=== PATIENT | male | born 1955 | race Caucasian/White ===

== ENCOUNTER 2016-07-06 13:55 | Emergency (ER) | payer OTHER ==
--- NOTE | 2016-07-06 13:59 | EDM.PDOC ---
ED HPI Trauma - General Chief Complaint: Upper Extremity Injury/Pain Stated Complaint: crush injury to right hand Time Seen by Provider: 07/06/16 13:59 Source: Reports: Patient, Family, RN, RN notes reviewed History Limitations: Reports: No limitations - History of Present Illness INITIAL COMMENTS - FREE TEXT/NARRATIVE: Patient presents to the ED at [place] after he sustained a crush injury to the 4th digit right hand. Patient states he was working on a car frame. When he went to move the car from off the jacks, the frame slipped, crushing the 4th digit of the right hand and pinning it to the ground. No previous injury or trauma to the right hand. No previous right hand surgeries. Patient denies any numbness, tingling, or paresthesia to the right hand. Symptom Onset Date: 07/06/16 Symptom Onset Time: 13:15 Occurred When: just prior to arrival Occurred Where: home Method of Injury: direct blow (crush injury) Severity: moderate Pain/Injury Location: Reports: upper extremity, right Consciousness: Reports: no loss of consciousness Associated Symptoms: Reports: no other symptoms Allergies/ADRs: Allergies No Known Allergies Allergy (Verified 07/06/16 13:56) Home Medications: Ambulatory Orders Aspirin 07/06/16 Insulin Detemir [Levemir Flextouch] 07/06/16 Lisinopril [Zestril] 07/06/16 Pravastatin Sodium [Pravastatin Sodium] 07/06/16 sitaGLIPtin Phos/Metformin HCl [Janumet 50-1,000 MG] 07/06/16 Review of Systems - Review of Systems Review Of Systems: See Below Constitutional: Reports: no symptoms. Denies: fever, weakness Respiratory: Reports: no symptoms. Denies: shortness of breath, cough Cardiovascular: Reports: no symptoms. Denies: chest pain, palpitations Musculoskeletal: Reports: hand pain (right hand) Skin: Reports: wound (4th digit laceration) Neurological: Denies: numbness, paresthesia, tingling Trauma Exam - Physical Exam Exam: See Below Exam Limited By: No limitations General Appearance: Reports: alert, no apparent distress Head: Reports: atraumatic, normocephalic Respiratory Exam: Reports: no respiratory distress, lungs clear, normal breath sounds Cardiovascular: Reports: regular rate, rhythm Extremities: Reports: pain with movement, tenderness, other (obvious deformity to 4th digit right hand; patient is unable to extend or flex 4th digit; pulses intact) Neurologic: Reports: alert, oriented x 3 Skin: Reports: Normal color - Chelsey Coma Score Best Eye Response (Chelsey): (4) open spontaneously Best Verbal Response ([place]): (5) oriented Best Motor Response (Chelsey): (6) obeys commands Chelsey Total: 15 ED TRAUMA EXTREMITY PROCEDURES - Laceration/Wound Repair Right Finger Lac/wound length in cm: 1.5 Appearance: superficial, linear, mildly contaminated Distal NVT: neuro & vascular intact, no tendon injury Skin prep: chlorhexidine (hibiciens) Exploration/Debridement/Repair: wound explored, in a bloodless field, explored to base, no foreign material found, wound margins revised Closed with: dermabond (1.5cm laceration dorsum of 5th digit closed with Dermabond. Second laceration 2.2 cm dorsum of 4th digit closed with Dermabond.) Sterile dressing applied: provider Tetanus status addressed: Yes Complications: No Course - Vital Signs Last Recorded V/S: Last Vital Signs Temp 36.2 C 07/06/16 14:01 Pulse 93 07/06/16 14:01 Resp 20 07/06/16 14:01 BP 146/88 H 07/06/16 14:01 Pulse Ox 97 07/06/16 14:01 - Orders/Labs/Meds Orders: Active Orders 24 hr Category Date Time Status Hand wo Cont Rt [CT] Stat Exams 07/06/16 13:59 Ordered Departure - Departure Time of Disposition: 15:58 Disposition: DC/Tfer to Acute Hospital 02 Condition: good Clinical Impression: Finger fracture, right Referrals: Liliana Neal DO [Primary Care Provider] - Forms: Interfacility Transfer [facility] ED Communication - ED Communication Date/Time Date: 07/06/16 Time Called: 15:40 - Discussed Case With (1) Discussed Case With (1): Other (Dr. Rajiv Mtz, Hand Surgeon) - Problem List Review Problem List Initiated/Reviewed/Updated: Yes - My Orders Last 24 Hours: My Active Orders 07/06/16 13:59 Hand wo Cont Rt [CT] Stat - Assessment/Plan Last 24 Hours: My Active Orders 07/06/16 13:59 Hand wo Cont Rt [CT] Stat Plan: Patient will transfer to [facility] for surgery. Dr. Rajiv Mtz is the accepting provider. Patient will go by private vehicle.
[2016-07-06 14:04] VITALS: BP 146/88
== END 2016-07-06 16:30 | disposition short-term general hospital (02) ==
LOC: VM.ED 13:55
DX: S62.604A Fracture of unspecified phalanx of right ring finger, initial encounter for closed fracture (principal); S61.214A Laceration without foreign body of right ring finger without damage to nail, initial encounter; W23.1XXA Caught, crushed, jammed, or pinched between stationary objects, initial encounter; Z79.82 Long term (current) use of aspirin; Z79.4 Long term (current) use of insulin; Z79.899 Other long term (current) drug therapy
CPT/HCPCS: 12002; 73200-RT; 99284

== ENCOUNTER 2017-02-18 09:12 | Inpatient (IN) | payer OTHER ==
[2017-02-18] MEDS ORDERED: Sodium Chloride 0.9% 10 ML Syringe FLUSH PRN (10:22)
[2017-02-18] MEDS ORDERED: Potassium Chloride 20 MEQ Tab.ER PO ONE (11:00)
[2017-02-18] MEDS: Ketorolac 15 MG/ML SDV IVPUSH PRN ×2 (11:19→20:11)
[2017-02-18] MEDS: Sodium Chloride 0.9% 1,000 ML IV SCH ×2 (11:19→20:12)
[2017-02-18] MEDS: Ondansetron 4 MG/2 ML SDV IVPUSH PRN ×2 (11:20→20:12)
[2017-02-18] MEDS ORDERED: Insulin Aspart 100 Units/ML 3 ML Pen SUBCUT SCH (12:00)
[2017-02-18] MEDS: Acetaminophen 500 MG Tab PO PRN ×2 (16:41→20:30)
--- NOTE | 2017-02-18 16:42 | PCM.HP ---
H&P History of Present Illness - General Date of Service: 02/18/17 Admit Problem/Dx: Admission Diagnosis/Problem Admission Diagnosis/Problem Fever Source of Information: Patient History Limitations: Reports: No Limitations - History of Present Illness Initial Comments - Free Text/Narative: 61 yo seen yesterday in the clinic for fever and headaches starting around 02/06 was seen on 02/11 had a negative west nile test, had been started on doxy yesterday due to a trip to [place] but still spiked a 102 fever during the night. Lyme testing did come back negative. His knees do ache and he is very fatigued. His son had a similar illness that eventually went away. His CBC was normal yesterday. Took ambien to help sleep but he almost fell so his was helping him. Toradol given in the office did help his headache but it is back again. Headache is posterior with no neck pain. he had been using tylenol and lfts were about 2 x normal. Sodium was 128 yesterday and today 130. He has been able to drink gatorade but has no appetite to eat much. Does have diabetes and blood sugars have been high. Onset of Symptoms: Reports: Gradual Duration of Symptoms: Reports: Week(s): Location: Reports: Head Severity: Moderate Improves with: Reports: Medication Associated Symptoms: Reports: Fever/Chills, Malaise Frontal Headache Pain Score (Numeric/FACES): 4 Occipital Headache Pain Score (Numeric/FACES): 4 - Related Data Allergies/Adverse Reactions: Allergies Allergy/AdvReac Type Severity Reaction Status Date / Time No Known Allergies Allergy Verified 02/18/17 09:28 Home Medications: Home Meds Aspirin 81 mg PO DAILY 07/06/16 [History] Insulin Detemir [Levemir Flextouch] 55 unit SQ BEDTIME 07/06/16 [History] Lisinopril [Zestril] 2.5 mg PO DAILY 07/06/16 [History] Pravastatin Sodium [Pravastatin Sodium] 20 mg PO DAILY 07/06/16 [History] sitaGLIPtin Phos/Metformin HCl [Janumet 50-1,000 MG] 1 tab PO BID 07/06/16 [ History] Doxycycline [Vibramycin] 100 mg PO BID 02/18/17 [History] Ibuprofen [Advil] 200 - 600 mg PO Q4H PRN 02/18/17 [History] Zolpidem Tartrate [Ambien] 5 mg PO BEDTIME PRN 02/18/17 [History] glipiZIDE [Glipizide ER] 10 mg PO DAILY 02/18/17 [History] Past Medical History Cardiovascular History: Reports: High Cholesterol, Other (See Below) Other Cardiovascular History: chest pain Respiratory History: Reports: Pneumonia, Recurrent Genitourinary History: Reports: Other (See Below) Other Genitourinary History: colon polyps Musculoskeletal History: Reports: Neck Pain, Chronic, Osteoarthritis, Other ( See Below) Other Musculoskeletal History: foraminal stenosis of cervical region Neurological History: Reports: Other (See Below) Other Neuro History: mortons neuroma Endocrine/Metabolic History: Reports: Diabetes, Type II, Other (See Below) Other Endocrine/Metabolic History: hypertriglyceridemia Social & Family History - Family History Family Medical History: Noncontributory - Tobacco Use Smoking Status *Q: Never Smoker Second Hand Smoke Exposure: No - Caffeine Use Caffeine Use: Reports: None - Alcohol Use Days Per Week of Alcohol Use: 1 Number of Drinks Per Day: 0 Total Drinks Per Week: 0 - Recreational Drug Use Recreational Drug Use: No H&P Review of Systems - Review of Systems: Review Of Systems: See Below General: Reports: Fever, Malaise, Fatigue, Decreased Appetite HEENT: Reports: Headaches, Sinus Congestion. Denies: Eye Pain, Sore Throat Pulmonary: Denies: Shortness of Breath, Wheezing, Cough, Sputum Gastrointestinal: Reports: Anorexia, Decreased Appetite. Denies: Abdominal Pain , Constipation, Diarrhea, Nausea, Vomiting Genitourinary: Denies: Dysuria Musculoskeletal: Denies: Neck Pain Skin: Reports: No Symptoms. Denies: Erythema, Wound Psychiatric: Denies: Confusion Neurological: Reports: Headache. Denies: Confusion, Dizziness Hematologic/Lymphatic: Denies: Anemia, Swollen Glands Immunologic: Denies: No Symptoms Exam - Exam Exam: See Below - Vital Signs Vital Signs: Last Vital Signs Temp 101.8 F H 02/18/17 16:23 Pulse 90 02/18/17 13:15 Resp 16 02/18/17 13:15 BP 86/41 L 02/18/17 13:15 Pulse Ox 98 02/18/17 13:15 Weight: 95.254 kg - Exam General: Alert, Oriented, Cooperative HEENT: Conjunctiva Clear, EACs Clear, EOMI, Hearing Intact Neck: Supple, Trachea Midline, Full Range of Motion. No: Lymphadenopathy, Thyromegaly Lungs: Clear to Auscultation, Normal Respiratory Effort. No: Crackles, Rales, Rhonchi Cardiovascular: Regular Rate, Regular Rhythm, Normal S1 GI/Abdominal Exam: Normal Bowel Sounds, Non-Tender, No Organomegaly, No Distention, No Mass. No: Soft Back Exam: Normal Inspection, Full Range of Motion. No: CVA Tenderness (L), CVA Tenderness (R) Extremities: Normal Inspection, Normal Range of Motion, Non-Tender, No Pedal Edema Peripheral Pulses: 2+: Dorsalis Pedis (L), Dorsalis Pedis (R) Skin: Warm, Dry Neurological: Cranial Nerves Intact Neuro Extensive - Mental Status: Oriented x3, Normal Mood/Affect, Normal Cognition Neuro Extensive - Motor, Sensory, Reflexes: Normal Gait - Patient Data Lab Results Last 24 hrs: Laboratory Results - last 24 hr 02/18/17 02/18/17 02/18/17 Range/Units 08:55 11:03 16:25 POC Glucose 195 H 137 H (74-106) mg/dL Lactic Acid 1.9 (0.4-2.0) mmol/L *Q Meaningful Use (ADM) - VTE *Q VTE Criteria *Q: - VTE Risk Assess *Q Each Risk Factor Represents 2 Points: Age 60 - 74 Years Total Score 2 Point Risk Factors: 2 - Stroke *Q Stroke Criteria *Q: - AMI *Q AMI Criteria *Q: - Problem List (1) Diabetes type 2, controlled SNOMED Code(s): 61630634 ICD Code: E11.9 - TYPE 2 DIABETES MELLITUS WITHOUT COMPLICATIONS Status: Acute Priority: Medium Current Visit: Yes Qualifiers: Diabetes mellitus complication detail: with polyneuropathy Diabetes mellitus custodial insulin use: with custodial use (2) Fever SNOMED Code(s): 401513026 ICD Code: R50.9 - FEVER, UNSPECIFIED Status: Acute Current Visit: Yes Qualifiers: Fever type: unspecified Qualified Code(s): R50.9 - Fever, unspecified (3) Headache SNOMED Code(s): 61344535 ICD Code: R51 - HEADACHE Status: Acute Priority: Medium Current Visit: Yes Qualifiers: Headache type: other headache syndrome Qualified Code(s): G44.89 - Other headache syndrome (4) Hyperlipidemia SNOMED Code(s): 51717660 ICD Code: E78.5 - HYPERLIPIDEMIA, UNSPECIFIED Status: Acute Current Visit : Yes Qualifiers: Hyperlipidemia type: pure hypercholesterolemia Qualified Code(s): E78.00 - Pure hypercholesterolemia, unspecified; E78.0 - Pure hypercholesterolemia (5) Hepatitis SNOMED Code(s): 775030906 ICD Code: K75.9 - INFLAMMATORY LIVER DISEASE, UNSPECIFIED Status: Acute Priority: Medium Current Visit: Yes (6) Hyponatremia SNOMED Code(s): 00169548 ICD Code: E87.1 - HYPO-OSMOLALITY AND HYPONATREMIA Status: Acute Priority : Medium Current Visit: Yes (7) Dehydration SNOMED Code(s): 59142484 ICD Code: E86.0 - DEHYDRATION Status: Acute Priority: Medium Current Visit: Yes Problem List Initiated/Reviewed/Updated: Yes Orders Last 24hrs: Active Orders 24 hr Category Date Time Status Patient Status [ADT] Routine ADT 02/18/17 09:13 Active Blood Glucose Check, Bedside [RC] QIDACANDBED Care 02/18/17 10:22 Active Oxygen Therapy [RC] .PRN Care 02/18/17 10:22 Active Up ad Nakia [RC] 08,20 Care 02/18/17 10:22 Active Vital Signs [RC] 06,10,14,18,22,02 Care 02/18/17 10:22 Active [place] [employer] Diet [DIET] Diet 02/18/17 Lunch Active Chest 2V [CR] Routine Exams 02/18/17 10:22 Taken CBC WITH AUTO DIFF [HEME] AM Lab 02/19/17 05:15 Ordered COMPREHENSIVE METABOLIC PN,CMP [CHEM] AM Lab 02/19/17 05:15 Ordered CREATINE KINASE,CK [CHEM] Routine Lab 02/19/17 07:00 Ordered MG [MAGNESIUM] [CHEM] Routine Lab 02/19/17 07:00 Ordered Acetaminophen [Tylenol Extra Strength] Med 02/18/17 16:31 Ordered 500 mg PO Q4H PRN Aspirin [Halfprin] Med 02/19/17 08:00 Active 81 mg PO DAILY Insulin Aspart [NovoLOG] Med 02/18/17 16:37 Ordered 3 unit SUBCUT TIDMEALS Insulin Aspart [NovoLOG] Med 02/18/17 12:00 Stop Req 5 unit SUBCUT TIDMEALS Insulin Detemir [Levemir] Med 02/18/17 20:00 Active 55 unit SUBCUT BEDTIME Ketorolac [Toradol] Med 02/18/17 10:31 Active 15 mg IVPUSH Q8H PRN Lisinopril [Prinivil] Med 02/19/17 08:00 Active 2.5 mg PO DAILY Ondansetron [Zofran] Med 02/18/17 10:22 Active 4 mg IVPUSH Q4H PRN Sodium Chloride 0.9% [Normal Saline] 1,000 ml Med 02/18/17 10:30 Active IV ASDIRECTED Sodium Chloride 0.9% [Saline Flush] Med 02/18/17 10:22 Active 10 ml FLUSH ASDIRECTED PRN Peripheral IV Insertion Adult [OM.PC] Routine Oth 02/18/17 10:22 Ordered Resuscitation Status Routine Resus Stat 02/18/17 10:22 Ordered Medication Orders Acetaminophen (Tylenol Extra Strength) 500 mg PO Q4H PRN PRN Reason: Fever Aspirin (Halfprin) 81 mg PO DAILY JB Sodium Chloride (Normal Saline) 1,000 mls @ 100 mls/hr IV ASDIRECTED JB Last Admin: 02/18/17 11:19 Dose: 100 mls/hr Insulin Aspart (Novolog) 5 unit SUBCUT TIDMEALS [facility] Last Admin: 02/18/17 11:56 Dose: 5 units Insulin Detemir (Levemir) 55 unit SUBCUT BEDTIME [facility] Ketorolac Tromethamine (Toradol) 15 mg IVPUSH Q8H PRN PRN Reason: Headache Last Admin: 02/18/17 11:19 Dose: 15 mg Lisinopril (Prinivil) 2.5 mg PO DAILY JB Ondansetron HCl (Zofran) 4 mg IVPUSH Q4H PRN PRN Reason: Nausea/Vomiting Last Admin: 02/18/17 11:20 Dose: 4 mg Sodium Chloride (Saline Flush) 10 ml FLUSH ASDIRECTED PRN PRN Reason: Keep Vein Open Plan: Admit for IV fluids Discussed LP with patient and his to rule out potential aseptic meningitis given prolonged symptoms and headache at this point he wants to see how he does over night Due to negative lyme testing in clinic we will stop Doxycycline Did discuss repeating the west nile test but with no treatments it would not change his management. Repeat labs in AM, hold pharmacologic DVT prophylaxis in case he needs an LP CXR done and looks ok, no infection noted UA ok from clinic, blood cultures so far negative from the clinic QID accuchecks hold metformin and schedule meal insulin Hold Statin Code level 1 Assessment/Plan Comment:: see above
[2017-02-18] MEDS: Insulin Aspart 100 Units/ML 3 ML Pen SUBCUT SCH (17:35)
[2017-02-18] MEDS ORDERED: Doxycycline 100 MG Cap PO SCH (20:00)
[2017-02-18] MEDS: Insulin Detemir 100 Units/ML 3 ML Pen SUBCUT SCH (20:08)
[2017-02-19] MEDS: Acetaminophen 500 MG Tab PO PRN ×2 (04:11→17:24)
[2017-02-19] MEDS: Sodium Chloride 0.9% 1,000 ML IV SCH (04:12)
[2017-02-19] MEDS ORDERED: Lisinopril 2.5 MG Tab PO SCH (08:00)
[2017-02-19] MEDS: Aspirin 81 MG Tab.EC PO SCH (08:31)
[2017-02-19] MEDS: Ketorolac 15 MG/ML SDV IVPUSH PRN ×2 (08:31→17:25)
[2017-02-19] MEDS: Insulin Aspart 100 Units/ML 3 ML Pen SUBCUT SCH ×3 (08:34→17:29)
[2017-02-19] MEDS: NS + KCl 20mEq/L 1,000 ML IV SCH ×2 (09:08→18:20)
[2017-02-19] MEDS: Potassium Chloride 20 MEQ Tab.ER PO SCH ×2 (09:08→20:31)
[2017-02-19] MEDS: Magnesium Oxide 400 MG Tab PO SCH ×2 (09:08→20:31)
--- NOTE | 2017-02-19 10:06 | PN ---
Progress Note for LASHAUN BYRNES Date: 02/19/2017 Room #: VM.204 SUBJECTIVE: This is hospital day #2 for a 61-year-old admitted with fevers and headaches going on for 2 weeks. He initially had a West Nile testing about 4 to 5 days after symptom onset that was negative. He continues to have a posterior headache. He rates it about a 4/10. Toradol does help. Over night, he had some lower blood pressures. There was one recorded by the aide 70/22, but fortunately the nurse rechecked it and it was up again over 90 and even 100. So, most consistently, he was around about 92/43. He said he felt awful but not really lightheaded or dizzy. He did get some increased IV fluids. His T-max overnight was 103.5 at 4:00 a.m. Otherwise, he ate breakfast this morning. He denies any nausea. He denies any stomach pain, chest pain, coughing, or trouble breathing. Blood cultures through the clinic have been negative. Chest x-ray done yesterday was normal. OBJECTIVE: Vital Signs: His temperature 98.5 currently, pulse 93, blood pressure 92/43, respiratory rate 20, O2 of 92% on room air. General: He is in no acute distress. Heart: Regular rate and rhythm. S1, S2 without murmur. Lungs: Sounds are clear to auscultation bilaterally without crackles or wheezes. Abdomen: Positive bowel sounds. Nontender. Extremities: Warm and dry. No edema. Mental Status: Alert and orientated x3. LABORATORY DATA: Lab work continues to show a normal white count 5.8 with a hemoglobin slightly down at 12.4, platelets 170. Sodium 132, potassium 3.2, chloride 100, bicarb 26, BUN 16, creatinine 1.3, glucose 114, calcium 7.6, AST 51, and ALT 71. CK normal at 36. Albumin 2.3. ASSESSMENT AND PLAN: 1. Acute febrile illness, leading differential would be viral probably aseptic meningitis, maybe even West Nile. Given the duration of symptoms, I do not think his hypotension represents any shock and did discuss this with him and his this morning. At this point, we are going to proceed with a lumbar puncture. We will do a CT scan of the head first to ensure there are no intracranial abnormalities. 2. Diabetes type 2, under good on his insulin. Glipizide is on hold. He is getting small doses of meal insulin. 3. Hepatitis, mild. LFTs are stable. His metformin and statin are on hold. 4. Mild hypotension. At this point, we will continue IV fluids. I will hold his lisinopril which he takes due to diabetes. 5. Hyponatremia, improved. Sodium from 130 up to 132. We will continue to monitor. This is likely due to poor oral intake. 6. Moderate malnutrition. Albumin down to 2.3. This is probably due to weight loss and poor appetite with illness over the past 2 Weeks. 7. Hypokalemia. PLAN: At this point, the patient will continue acute cares with IV fluids. We will replace his potassium both IV and orally. We will repeat lab work in the morning. We will continue blood sugar checks for diabetes. We discussed, at this point, I do not think steroids will provide any benefit and will only increase blood sugars. We will repeat West Nile testing. We will send off HSV testing as well, although he has not had any cognitive changes. We will get the lumbar puncture today to potentially confirm our theory of aseptic meningitis. He does understand that even if he has that condition, there is no treatment other than supportive care. We will continue Toradol for headache control. Tylenol is available for fevers. MKA: 02/19/2017 08:50:46 MODL: 02/19/2017 09:45:29 /[id number]
--- NOTE | 2017-02-19 18:45 | PROC ---
TITLE: Lumbar Puncture INDICATIONS: This patient is referred to me by Dr. Liliana Neal for a longstanding headache and fevers about 2 weeks in duration. It has not gotten any better and Dr. Liliana Neal wanted evaluation for meningitis. The patient was brought to the preop holding area. The patient was on the cart. I did discuss with the patient the risks and benefits of procedure. The benefit being a test that may delineate bacterial or some other infectious process in the spinal fluid. The risks being infection, bleeding, possible postdural puncture headache, possible nerve damage, possibility that we would be able to obtain the samples. The patient understands these and agrees to proceed. The patient was placed in a sitting position. I had located the L3 vertebra and the L2-L3 interspace. I placed hawkins corresponding to that on the skin. I then prepped the area with ChloraPrep in a wide prep, scrubbing for approximately 1 minute, and allowing the area to dry completely. I then placed a sterile fenestrated drape over the area. I used 1% Xylocaine and infiltrated both superficially and deeply using approximately 4.5 mL. I then placed a 20-gauge introducer in directionally toward where I wanted to go. I advanced 25-gauge Pencan needle into the subarachnoid space. I did get good CSF return immediately. I initially filled each of the tubes in 0.5 mL to 1 mL of CSF beginning with tube #[address] my [address] towards tube #4 sequentially. The CSF appeared to be clear without trauma. When I finished collecting all of the samples, the needle was removed. There was some slight bleeding, which was staunched with pressure. I left the prep in place and placed a Band-Aid over that. Vital signs were monitored. No untoward effects noted. The patient tolerated the procedure quite well and was discharged back to the floor. Thank you very much for this consult. CK: 02/19/2017 13:34:59 MODL: 02/19/2017 18:36:19 /[id number]
[2017-02-19] MEDS: Insulin Detemir 100 Units/ML 3 ML Pen SUBCUT SCH (20:32)
[2017-02-20] MEDS: Acetaminophen 500 MG Tab PO PRN ×3 (02:22→17:49)
[2017-02-20] MEDS: NS + KCl 20mEq/L 1,000 ML IV SCH (02:26)
[2017-02-20 07:17] LABS: CHLORIDE,CL 102 mmol/L (98-107); SODIUM,NA 134 mmol/L (136-145)
[2017-02-20] MEDS: Diatrizoate Meglumine/Diatrizoate Sodium 37% 30 ML Bottle PO SCH ×3 (07:31→08:34)
[2017-02-20] MEDS: Potassium Chloride 20 MEQ Tab.ER PO SCH (09:01)
--- NOTE | 2017-02-20 09:40 | PN ---
Progress Note for LASHAUN BYRENS Date: 02/20/2017 Room #: VM.204 SUBJECTIVE: Hospital day #3 on a 61-year-old admitted with fever. No diagnosis has been found. He is undergoing workup for fever of unknown origin. Plan would be for an abdominal and chest CT today. He denies abdominal pain. He denies shortness of breath. He was feeling better last evening, but did spike another temp up to 102.9 at 2 a.m. and got Tylenol. Otherwise, he continues to have a headache. It has not gotten any better or worse. He has been rating it about 4/10. He is receiving IV Toradol twice a day and it helps. Otherwise, he has been getting IV fluids with potassium. His levels are better today. He has not had any bowel movement since admission, but is getting Gastrografin for CT. Lumbar puncture was done yesterday and was negative for meningitis. OBJECTIVE: Vital Signs: Otherwise, his temperature is 98.4, pulse 71, blood pressure 110/59, respiratory rate 20, and O2 98 on room air. General: He is in no acute distress. Heart: Regular rate and rhythm. S1, S2 without murmur. Lungs: Sounds are clear to auscultation with some mild crackles in both bases. Abdomen: Positive bowel sounds. Soft and nontender. Extremities: Warm and dry. No edema. Mental Status: Alert and orientated x3. LABORATORY DATA: Lab work is reviewed. White count still normal at 6.4, hemoglobin 12, and platelets are 159. Sodium 134, potassium 4, chloride 102, bicarb 25, BUN 14, creatinine 1.2, and glucose 134. AST 54, ALT 75, and alkaline phosphatase is 81. LDH slightly elevated at 332. CRP slightly elevated at 2.4. Albumin down at 2.1. [place] screen was negative. ASSESSMENT AND PLAN: 1. Recurrent fevers over the past 2 weeks with unknown source. Blood cultures have been negative. Urine testing and chest x-ray all negative. Leading differential is still a viral illness. Repeat West Nile testing was sent off again yesterday. We sent off for CMV and HSV. We have also sent off a tick screen for anaplasma. He did not have any improvement originally at about 24 hours of doxycycline, so he is on no antibiotics currently. We will continue workup with abdominal and chest CTs today. We will consider other infectious workups like hepatitis, HIV, and rheumatologic conditions like rheumatoid arthritis or a lupus as well. Although, this was discussed with the patient and his yesterday, and we held off in case the CT shows something. 2. Type 2 diabetes, controlled on insulin. We will hold it when he is n.p.o. for the CT. 3. Mild hepatitis. LFTs are stable. His metformin and statin are still on hold. 4. Hyponatremia, improved. Sodium is up to 134. 5. Mild lung crackles, probably from the fluids being in bed. We will get him up walking more in the halls today. We will get him on incentive spirometry. 6. Moderate malnutrition. 7. Hypokalemia replaced. I will discontinue oral potassium. The plan at this point, the patient will continue acute cares. I am going to stop his IV fluids. We will get him up and moving around today. We will start him on SCDs for DVT prophylaxis. Depending on what the CT shows, if it is all normal, we will probably put him on some Lovenox now that he is 24 hours out this afternoon from his lumbar puncture. We will stop IV fluids for now. Continue close monitoring with fevers, okay to continue Toradol for headache control. Discussed with him yesterday that Prednisone or steroids are not indicated. Tylenol is available for fevers. ANAISA: 02/20/2017 08:44:55 MODL: 02/20/2017 09:26:25 /[id number]
[2017-02-20] MEDS ORDERED: Iopamidol 612 MG/ML 100 ML Bottle IVPUSH ONE (10:00)
[2017-02-20] MEDS: Aspirin 81 MG Tab.EC PO SCH (10:02)
[2017-02-20] MEDS: Magnesium Oxide 400 MG Tab PO SCH ×2 (10:02→21:06)
[2017-02-20] MEDS: Insulin Aspart 100 Units/ML 3 ML Pen SUBCUT SCH ×3 (10:05→17:28)
[2017-02-20] MEDS: Sodium Chloride 0.9% 100 ML IV SCH ×2 (10:25→10:26)
[2017-02-20] MEDS ORDERED: Bisacodyl 5 MG Tab PO ONE (17:01)
[2017-02-20] MEDS ORDERED: Bisacodyl 10 MG Supp RECTAL PRN (17:02)
[2017-02-20] MEDS ORDERED: Enoxaparin 40 MG/0.4 ML Syringe SUBCUT ONE (17:03)
[2017-02-20] MEDS: Insulin Detemir 100 Units/ML 3 ML Pen SUBCUT SCH (21:00)
[2017-02-21] MEDS: Acetaminophen 500 MG Tab PO PRN (02:01)
[2017-02-21 06:27] VITALS: BP 97/57
[2017-02-21 07:09] LABS: CHLORIDE,CL 100 mmol/L (98-107); SODIUM,NA 133 mmol/L (136-145)
[2017-02-21] MEDS: Insulin Aspart 100 Units/ML 3 ML Pen SUBCUT SCH (07:44)
[2017-02-21] MEDS: Aspirin 81 MG Tab.EC PO SCH (07:44)
[2017-02-21] MEDS: Magnesium Oxide 400 MG Tab PO SCH (07:44)
[2017-02-21] MEDS ORDERED: Bisacodyl 10 MG Supp RECTAL ONE (08:50)
--- NOTE | 2017-02-22 04:04 | DISCH ---
PRIMARY DISCHARGE DIAGNOSES: 1. Persistent fevers with unknown origin, possibly an underlying viral illness, ruled out for aseptic meningitis with a negative lumbar puncture. CT abdomen, chest, and pelvis failed to reveal any source of infection. West Nile, Lyme testing originally have been negative. 2. Hepatitis, mild, with increased LFTs and heterogeneous changes on CT. LFTs trending down on discharge, possibly related to the underlying viral illness versus increased Tylenol use. His INR was not elevated when drawn in the clinic. His albumin had been low, but he had been eating poorly over the past 2 weeks. 3. Type 2 diabetes, controlled on insulin. 4. Mild hypotension, lisinopril discontinued, which he takes because of diabetes, he has no history of hypertension. 5. Hyponatremia, due to poor oral intake, improved, sodium up to 133 on discharge. 6. Moderate malnutrition. 7. Hypokalemia, replaced intravenous and orally. 8. Constipation, but he had had some loose stools coming into the visit. REASON FOR ADMISSION: On the date of admission, this 61-year-old male was admitted, he had been seen on the clinic on the previous date for persistent fevers, he had temperatures up to 102.9 at home, he was having headaches, which he rated about 4/10 to 5/10, posterior in origin. He had been started on his doxycycline presumptively for a potential diagnosis of Lyme due to travel to [place], but that had not helped. During his stay, he received IV Toradol 15 mg about twice daily, but none within 24 hours prior to discharge. His T-max during his stay was actually 103.5 on 02/19/2017 at 4 a.m. He otherwise had been having less fevers over the previous evening, he had normally spiked a high temperature during the middle of the night, and his highest temperature was a 100.2 at 10 p.m. and then 102.1 at 6 p.m. last evening. He was feeling a little better this morning, definitely no worse, described his headache is mild, instead he felt like he was ready to go home. We discussed overall the testing, CT scan, and pending testing and at this point followup instructions were given for Friday. PHYSICAL EXAMINATION: Vital Signs: On discharge include a temperature 98.4, pulse 92, blood pressure 97/57, respiratory rate 20, and O2 95 on room air. General: He is in no acute distress. Heart: Regular rate and rhythm. Lungs: Sounds are clear to auscultation with mild crackles bilaterally in the bases. His fluids were stopped yesterday. His CT scan and chest x-rays had shown no problems with his lungs for infection. He was not coughing. Abdomen: Positive bowel sounds. It is soft. There is just some mild tenderness in the left lower quadrant without rebound or guarding. UA was showing just mild protein through the clinic, but no signs of infection. CT did not show any intraabdominal sources of infection or abscess. Extremities: Warm and dry. No edema. Mental Status: Alert and orientated x3. Neck: Supple without lymphadenopathy. ASSESSMENT AND PLAN: Follow up with Dr. Neal in the clinic on Friday as previously scheduled. He will take the doxycycline 100 mg twice daily through the weekend. He will stay off his cholesterol and blood pressure medication. He will push fluids. He will try a suppository today and if that does not help, he can take senna at home. He was eating up to 100% of most meals. If he has persistent fever, he can take Tylenol and Motrin. If symptoms get worse, he is instructed to return for medical care. MKA: 02/21/2017 09:06:34 MODL: 02/22/2017 03:57:56 /[id number]
== END 2017-02-21 09:42 | disposition home or self-care (01) | DRG 864 ==
LOC: VM.MS 09:13
PROVIDERS: ADMIT Internal Medicine; ATTEND Internal Medicine
PROC: 009U3ZX Drainage of Spinal Canal, Percutaneous Approach, Diagnostic (ICD-10-PCS; principal; 2017-02-19)
DX: R50.9 Fever, unspecified (principal); E87.1 Hypo-osmolality and hyponatremia; E46 Unspecified protein-calorie malnutrition; B34.9 Viral infection, unspecified; R51 Headache; E87.6 Hypokalemia; I95.9 Hypotension, unspecified; K59.00 Constipation, unspecified; E11.9 Type 2 diabetes mellitus without complications; E78.5 Hyperlipidemia, unspecified; K75.9 Inflammatory liver disease, unspecified; E86.0 Dehydration; Z79.4 Long term (current) use of insulin; Z79.82 Long term (current) use of aspirin; Z79.84 Long term (current) use of oral hypoglycemic drugs; Z79.899 Other long term (current) drug therapy; M19.90 Unspecified osteoarthritis, unspecified site
CPT/HCPCS: 36415; 62270; 70450; 71020; 71260; 74177; 80053; 82550; 82945; 82962; 83605; 83615; 83735; 84157; 85025; 86140; 86308; 86644; 86645; 86788; 87040; 87070; 87205; 87529; 87798; 89050; A9270-GY; J1650; J1815-GY; J1885; J2405; J3480; J7030; J7050; Q9967

== ENCOUNTER 2017-10-07 07:45 | Day surgery (SDC) | payer OTHER ==
[~2017-10-07 07:45] MED LIST: Lactated Ringers 1,000 ML IV SCH
[2017-10-07] MEDS ORDERED: Propofol 200 MG/20 ML SDV ONE (09:49)
[2017-10-07] MEDS ORDERED: fentaNYL 100 MCG/2 ML SDV ONE (09:49)
[2017-10-07 11:02] VITALS: BP 107/70
--- NOTE | 2017-10-08 07:52 | OR ---
PREOPERATIVE DIAGNOSIS: History of polyps. POSTOPERATIVE DIAGNOSIS: Moderate-size cecal polyp removed. PROCEDURE PROPOSED: Total flexible colonoscopy. PROCEDURE DONE: Total flexible colonoscopy with hot snare polypectomy x1. INDICATION: This is a 61-year-old gentleman who has a history of polyps and comes in for a 5-year colonic surveillance evaluation. He denies any symptomatology. TECHNIQUE: The patient was brought to the endoscopy suite, placed in left lateral decubitus position. The patient was sedated per [employer]G [employer] with propofol. The flexible video colonoscope was then passed transanally and under visualization advanced to the cecum. In the cecal area, he had a flattish tubulovillous type polyp that I was able to removed with 1 application of the hot snare technique and burned through the base of the polyp nicely and retrieve the polyp by holding it in the snare. It was too large to go through the scope. I was then able to evaluate the remainder of the colon, the ascending, transverse, and descending colon were unremarkable. The sigmoid colon had a very rare occasional diverticular orifice noted, but essentially no significant diverticular disease was noted. The rectum was normal. The scope was then withdrawn along with the polyp, which was then submitted for pathologic examination. He tolerated the entire procedure well. FINAL IMPRESSION: 1. Cecal polyp removed. 2. History of prior polyps. PLAN: He will be sent a letter with pathology report. I felt he should continue with colonic surveillance every 5 years hereafter. SCM: 10/07/2017 10:22:20 MODL: 10/07/2017 17:07:49 /[id number]
== END 2017-10-07 11:00 | disposition home or self-care (01) ==
LOC: VM.SDS 07:45
PROVIDERS: ATTEND Surgery
DX: Z12.11 Encounter for screening for malignant neoplasm of colon (principal); D12.0 Benign neoplasm of cecum; E11.40 Type 2 diabetes mellitus with diabetic neuropathy, unspecified; E78.5 Hyperlipidemia, unspecified; G57.60 Lesion of plantar nerve, unspecified lower limb; M47.22 Other spondylosis with radiculopathy, cervical region; M48.02 Spinal stenosis, cervical region; B25.9 Cytomegaloviral disease, unspecified; Z79.4 Long term (current) use of insulin; Z79.82 Long term (current) use of aspirin; Z79.899 Other long term (current) drug therapy; Z86.010 Personal history of colon polyps; Z80.0 Family history of malignant neoplasm of digestive organs; Z87.01 Personal history of pneumonia (recurrent)
CPT/HCPCS: 45385; 82962; J2704; J3010

== ENCOUNTER 2022-12-19 06:57 | Day surgery (SDC) | payer MEDICARE, OTHER ==
[2022-12-19] MEDS ORDERED: Lactated Ringers 1,000 ML IV SCH (07:00)
[2022-12-19] MEDS ORDERED: Propofol 200 MG/20 ML SDV ONE ×2 (08:00→08:27)
[2022-12-19] MEDS ORDERED: fentaNYL 100 MCG/2 ML SDV ONE (08:00)
[2022-12-19 09:25] VITALS: BP 104/65; PULSE 65
== END 2022-12-19 10:05 | disposition home or self-care (01) ==
LOC: VM.SDS 06:57
PROVIDERS: ATTEND Family Medicine
DX: D12.2 Benign neoplasm of ascending colon (principal); D12.4 Benign neoplasm of descending colon; D12.3 Benign neoplasm of transverse colon; K57.30 Diverticulosis of large intestine without perforation or abscess without bleeding; I25.10 Atherosclerotic heart disease of native coronary artery without angina pectoris; E78.5 Hyperlipidemia, unspecified; E11.9 Type 2 diabetes mellitus without complications; K92.2 Gastrointestinal hemorrhage, unspecified; G57.60 Lesion of plantar nerve, unspecified lower limb; M19.90 Unspecified osteoarthritis, unspecified site; M48.02 Spinal stenosis, cervical region; I25.810 Atherosclerosis of coronary artery bypass graft(s) without angina pectoris; Z86.010 Personal history of colon polyps; Z98.890 Other specified postprocedural states; Z80.0 Family history of malignant neoplasm of digestive organs
CPT/HCPCS: 00811; 82947; 88305; J2704; J3010; J7120